=== PATIENT | male | born 1985 | race Caucasian/White ===

== ENCOUNTER 2021-11-06 21:35 | Emergency (ER) | payer BC ==
--- NOTE | 2021-11-06 22:33 | ED ---
Fever HPI - General Chief Complaint: Fever Stated Complaint: Fever Time Seen by Provider: 11/06/21 21:46 Source: patient, family, RN notes reviewed Mode of arrival: ambulatory Limitations: no limitations - History of Present Illness Initial Comments: This is a 36-year-old male who presents to the emergency department for a fever. Patient states that he had a temperature of 105F at home. He took 1000 mg of Tylenol prior to arrival. He has minor congestion and body aches, but denies any chest pain, shortness of breath, or coughing. He was around one of his friends who has been sick. His friend has not been formally diagnosed with anything. Denies any chills, sore throat, cough, dyspnea, chest pain, palpitations, abdominal pain, nausea, vomiting, diarrhea, back pain, or headaches. MD Complaint: fever Context: sick contacts Associated Symptoms: myalgias, nasal congestion - Related Data Previous Rx's Medication Instructions Recorded Nirmatrelvir/Ritonavir [Paxlovid 1 each PO BID 5 Days #10 tab 11/06/21 2X150 mg-100 mg (E[facility])] methylPREDNISolone Dose Pack 4 mg PO DIRECTED #21 tab 11/06/21 [Medrol Dose Pack] Allergies Allergy/AdvReac Type Severity Reaction Status Date / Time No Known Allergies Allergy Verified 11/06/21 21:44 Review of Systems ROS Statement: Those systems with pertinent positive or pertinent negative responses have been documented in the HPI. ROS Other: All systems not noted in ROS Statement are negative. Past Medical History Past Medical History: No Reported History History of Any Multi-Drug Resistant Organisms: None Reported Past Surgical History: No Surgical Hx Reported Past Psychological History: No Psychological Hx Reported Smoking Status: Never smoker Past Alcohol Use History: Occasional Past Drug Use History: None Reported General Exam Limitations: no limitations General appearance: alert, in no apparent distress Head exam: Present: atraumatic, normocephalic, normal inspection Eye exam: Present: normal appearance, PERRL, EOMI. Absent: scleral icterus, conjunctival injection, periorbital swelling ENT exam: Present: normal exam, mucous membranes moist, TM's normal bilaterally, normal external ear exam Neck exam: Present: normal inspection. Absent: tenderness, meningismus, lymphadenopathy Respiratory exam: Present: normal lung sounds bilaterally. Absent: respiratory distress, wheezes, rales, rhonchi, stridor Cardiovascular Exam: Present: regular rate, normal rhythm, normal heart sounds. Absent: systolic murmur, diastolic murmur, rubs, gallop, clicks Neurological exam: Present: alert, oriented X3, CN II-XII intact Psychiatric exam: Present: normal affect, normal mood Skin exam: Present: warm, dry, intact, normal color. Absent: rash Course Vital Signs 11/06/21 11/06/21 21:40 23:14 Temperature 100 F H 98.7 F Pulse Rate 120 H 103 H Respiratory 22 18 Rate Blood Pressure 148/94 147/83 O2 Sat by Pulse 98 98 Oximetry Medical Decision Making - Medical Decision Making This is a 36-year-old male who presents to the emergency department for a fever. Patient tested positive for COVID-19. Prescription for Paxlovid and Medrol Dosepak sent to the pharmacy. Instructed him to quarantine for 5 days and practice extra precautions for an additional 5 days including always wearing a mask around others and avoiding travel. Continue to take Tylenol and ibuprofen as needed for fevers and body aches. Return precautions reviewed in depth, the patient is instructed to return to the emergency department with any new, worsening, or concerning symptoms. Patient verbalized understanding. This case was discussed in detail with the attending ED physician. Presentation, findings, and treatment plan discussed in detail as well. - Lab Data Lab Results 11/06/21 11/06/21 Range/Units 22:15 22:15 Coronavirus (PCR) Detected A (Not Detectd) Influenza Type A RNA Not Detected (Not Detectd) Influenza Type B (PCR) Not Detected (Not Detectd) Disposition Clinical Impression: COVID-19 Disposition: HOME SELF-CARE Instructions (If sedation given, give patient instructions): COVID-19 (Coronavirus Disease 2019) (ED), How to Recover from COVID-19 at Home (ED) Additional Instructions: Return to the emergency department with any new, worsening, or concerning symptoms. Take the Paxlovid as prescribed for 5 days. Take the Medrol Dose Pack as prescribed. Make sure that you quarantine for 5 days and practice extra precautions for an additional 5 days, including always wearing a mask around others and avoiding travel. Prescriptions: methylPREDNISolone Dose Pack [Medrol Dose Pack] 4 mg PO DIRECTED #21 tab Nirmatrelvir/Ritonavir [Paxlovid 2X150 mg-100 mg (Eua)] 1 each PO BID 5 Days #10 tab Is patient prescribed a controlled substance at d/c from ED?: No Referrals: None,Stated [Primary Care Provider] - 1-2 days
[2021-11-06 23:16] VITALS: BP 147/83; PULSE 103; RESP 18; TEMP 98.7
== END 2021-11-06 23:16 | disposition home or self-care (01) ==
LOC: EC 21:35
DX: U07.1 COVID-19 (principal)
CPT/HCPCS: 87502; 87635; 99283